=== PATIENT | male | born 1970 | race Caucasian/White ===

== ENCOUNTER 2019-07-26 17:55 | Emergency (ER) | payer MEDICAID, SELFPAY ==
[2019-07-26 18:00] VITALS: BP 140/89; PULSE 104; RESP 24; TEMP 36.9; O2SAT 100
[2019-07-26 18:08] LABS: Glucose Point of Care 369 (65-105)
--- NOTE | 2019-07-26 18:15 | ED.GENADULT ---
HPI - General Adult General Chief complaint: Extremity Injury, Lower Stated complaint: BILATERAL FOOT PAIN Time Seen by Provider: 07/26/19 18:15 History of Present Illness HPI narrative: Bilateral foot pain for the past month. Feels like he is walking on marbles . Constatn. Associated with numbness in the toes. He was seen at [facility] for this pain recently. At that time he was told that he had diabetes and started on metformin and given tramadol for the pain. He does report that his blood sugar has been elevated for years, but he does not have a doctor and had not previously been diagnosed with diabetes. Today he glucose during triage was 369. Related Data Home Medications Medication Instructions Recorded Confirmed metformin BID 07/26/19 tramadol mg 07/26/19 Allergies Allergy/AdvReac Type Severity Reaction Status Date / Time No Known Allergies Allergy Mild Verified 07/26/19 18:07 Review of Systems Review of Systems: All systems reviewed & are unremarkable except as noted in HPI and below Constitutional: Constitutional: Denies chills, Denies fever(s) and Denies weakness Eyes: Eyes: Denies change in vision ENT: Reports dizziness Cardiovascular: Cardiovascular: Denies chest pain Respiratory: Respiratory: Denies dyspnea Gastrointestinal: Gastrointestinal: Denies abdominal pain, Denies diarrhea, Reports nausea and Denies vomiting Genitourinary: Genitourinary: Denies dysuria Musculoskeletal: Musculoskeletal: Denies back pain Neurologic: Reports dizziness, Denies headache(s), Reports numbness and Denies weakness Endocrine: Endocrine: Reports polydipsia and Reports polyuria PMFSH Past Medical History Medical History (Updated 07/26/19 @ 19:24 by Caden Jackson MD) Diabetes Social History Social History Gender identity (if verbalized by the patient): Male Exam Const: General: healthy appearing, no acute distress and alert Nutritional Appearance: well nourished Orientation/consciousness: patient oriented x3 HENMT: Mouth: Yes dry mucous membranes Eyes: Pupils: Equal, round and reactive pupils present Neck: Neck: normal visual inspection Resp: Effort & Inspection: normal respiratory effort Auscultation: clear to auscultation bilaterally GI: GI Palp: Yes Soft to palpation and No Tenderness to palpation present (GI) Skin: General skin exam: normal color Rashes: no rashes Neuro: General: patient oriented x3 and moves all extremities Speech: normal speech Other: decreased sensation in feet bilaterally Extrem: Other: diffuse tenderness to bilateral feet Course Course Emergency Course: Case discussed with Dr. Cardoso. John start low dose gabapentin and 10 days of ameryl. I will also give him a few days worth of tramadol to provide some pain relief in the near term. Vital Signs Vital signs: Vital Signs Temperature 36.9 C 07/26/19 18:00 Pulse Rate 104 H 07/26/19 18:00 Respiratory Rate 24 H 07/26/19 18:00 Blood Pressure 140/89 07/26/19 18:00 Pulse Oximetry 100 07/26/19 18:00 Temperature 36.5 C 07/26/19 19:16 Pulse Rate 86 07/26/19 19:16 Respiratory Rate 15 07/26/19 19:16 Blood Pressure 131/77 07/26/19 19:16 Pulse Oximetry 99 07/26/19 19:16 Medical Decision Making Differential Diagnosis Differential Diagnosis: Neuropathy, plantar fasciitis, DKA, dehydration Medical Records Medical records reviewed: Yes I reviewed the patient's medical records. Vital Signs Vital Signs: Vital Signs Temperature 36.9 C 07/26/19 18:00 Pulse Rate 104 H 07/26/19 18:00 Respiratory Rate 24 H 07/26/19 18:00 Blood Pressure 140/89 07/26/19 18:00 Pulse Oximetry 100 07/26/19 18:00 Temperature 36.5 C 07/26/19 19:16 Pulse Rate 86 07/26/19 19:16 Respiratory Rate 15 07/26/19 19:16 Blood Pressure 131/77 07/26/19 19:16 Pulse Oximetry 99 07/26/19 19:16 Lab Data Lab results reviewed: Yes I reviewed the patient's lab results. Resul
[2019-07-26 18:20] LABS: Basophils Percent Auto 0.4 % (0.2-1.2); Eosinophils Absolute Auto 0.1 K/mm3 (0-0.3); Eosinophils Percent Auto 1.4 % (0-4.4); Hemoglobin 16.3 g/dL (14.0-18.0); Immature Granulocyte Absolute 0.02 K/mm3 (0.00-0.031); Immature Granulocyte Percent A 0.3 % (0-0.5); Lymphocytes Absolute Auto 2.09 K/mm3 (0.9-3.2); Lymphocytes Percent Auto 27.4 % (18.3-44.2); Mean Corpuscular HGB Conc 34.7 g/dl (32-36); Mean Corpuscular Hemoglobin 31.2 pg (26-34); Mean Platelet Volume 11.2 fl (7.4-10.4); Monocytes Absolute Auto 0.8 K/mm3 (0.1-0.6); Neutrophils Absolute Auto 4.6 K/mm3 (1.3-6.7); Neutrophils Percent Auto 59.5 % (45.5-73.1); Platelet Count Result 319 k/mm3 (150-375); Red Blood Count 5.22 M/mm3 (4.6-6.20); Red Cell Distribution Width 12.8 % (11.5-14.5); White Blood Count 7.6 K/mm3 (4.5-10.0)
[2019-07-26 18:38] LABS: Beta-Hydroxybutyrate/Acetoacetate 0.15 mmol/L (0.02-0.27)
[2019-07-26] MEDS: SODIUM CHLORIDE 0.9% IV 1,000 ML 999 ML IV CONT (18:47)
[2019-07-26 18:48] VITALS: BP 120/88; PULSE 96; RESP 24; TEMP 36.4; O2SAT 98
[2019-07-26 18:50] LABS: Add Urine Microscopic? YES; Appearance Urine Clear (Clear); Bilirubin Urine Negative (Negative); Blood Urine Negative (Negative); Color Urine Straw (Yellow); Glucose Urine UA 3+ mg/dL (Negative); Ketones Urine Trace mg/dL (Negative); Leukocyte Esterase Ur Negative LEU/UL (Negative); Nitrate Urine Negative (Negative); Protein Urine Negative (Negative); RBC Urine 0-2 /hpf (0-2); Specific Grav Ur 1.042 (1.001-1.035); Urobilinogen Urine Negative mg/dL (<2.0); WBC Urine 0-3 /hpf
[2019-07-26 18:56] LABS: Alanine Aminotransferase 23 U/L (4-50); Albumin Level 3.9 g/dL (3.5-5.1); Alkaline Phosphatase 63 U/L (38-126); Aspartate Amino Transferase 22 U/L (17-59); Bilirubin,Total 0.8 mg/dL (0.2-1.3); Blood Urea Nitrogen 18 mg/dL (9-20); Calcium 8.7 mg/dL (8.4-10.2); Carbon Dioxide 22 mmol/L (22-30); Chloride 97 mmol/L (98-107); Estimated CRCL calculation 151 ml/min; Estimated Glomerular Filt Rate > 60; Glucose 334 mg/dL (75-110); Magnesium 1.8 mg/dL (1.6-2.3); Phosphorus 4.8 mg/dL (2.5-4.5); Potassium 4.2 mmol/L (3.4-5.0); Sodium 132 mmol/L (137-145)
[2019-07-26 19:16] VITALS: BP 131/77; PULSE 86; RESP 15; TEMP 36.5; O2SAT 99
--- NOTE | 2019-07-26 19:17 | PC.NURSE ---
assumed care of pt at this time. report from SHARON Anders
--- NOTE | 2019-07-26 19:31 | PC.NURSE ---
pt requesting pain medications. edp notified no further orders
[2019-07-26 19:40] VITALS: BP 135/104; PULSE 78; RESP 12; TEMP 36.6; O2SAT 99
[2019-07-26] MEDS: TRAMADOL HCL 50 MG TABLET PO (19:40)
== END 2019-07-26 19:40 | disposition home or self-care (01) ==
PROVIDERS: Emergency Medicine; Emergency Provider Emergency Medicine
DX: E11.40 Type 2 diabetes mellitus with diabetic neuropathy, unspecified (principal); M79.2 Neuralgia and neuritis, unspecified; Z79.84 Long term (current) use of oral hypoglycemic drugs
CPT/HCPCS: 36415; 80053; 81001; 82010; 82948; 83735; 84100; 85025; 96360; 99283; A9270; J7030